=== PATIENT | female | born 1970 | race Caucasian/White ===

== ENCOUNTER 2025-08-04 18:35 | Emergency (ER) | payer OTHER ==
[~2025-08-04] VITALS: Ht 175.3 cm; Wt 152.0 kg
[2025-08-04 20:15] LABS: BASOPHILS 0.8 % (0.1-1.2); EOSINOPHILS 2.4 % (0.7-5.8); LYMPHOCYTES 23.3 % (19.3-51.7); MCH 29.9 PG (25.6-32.2); MCHC 32.9 g/dL (32.2-35.5); MCV 90.9 fL (79.4-94.8); MONOCYTES 9.0 % (4.7-12.5); NEUTROPHILS 64.2 % (34.0-71.1); RBC 4.08 M/uL (3.93-5.22)
[2025-08-04 20:58] LABS: ALT (SGPT) 23.0 U/L (14-59); AST (SGOT) 7.0 U/L (15-37); GLOMERULAR FILTRATION RATE,EST 75.0 mL/min (>60); PROTEIN, TOTAL 7.8 g/dL (6.4-8.2); UREA NITROGEN 7.0 mg/dL (7-18)
[2025-08-04] MEDS ORDERED: AZITHROMYCIN 250 MG HOME.PACK PO ONE (22:45)
[2025-08-04 22:57] VITALS: BP 192/107
== END 2025-08-04 22:58 | disposition home or self-care (01) ==
LOC: ED 18:35
PROVIDERS: Emergency Medicine
DX: U07.1 COVID-19 (principal); J12.82 Pneumonia due to coronavirus disease 2019
CPT/HCPCS: 36415; 71045; 80053; 83880; 85025